=== PATIENT | male | born 1990 | race Caucasian/White ===

== ENCOUNTER 2016-09-10 21:50 | Emergency (ER) | payer BC ==
[2016-09-10 22:06] VITALS: BP 140/73
--- NOTE | 2016-09-10 22:24 | ERNOTE ---
Medical Problem HPI - Narrative Date of Service: 09/10/16 - General Chief Complaint: Flu Symptoms - Immun/Allergies/Home Medications Immunizations: IMMUNIZATION HX Immunizations Up to Date Yes History of Influenza Vaccine No Hx Pneumococcal Vaccination No Allergies/Adverse Reactions: Allergies No Known Allergies Allergy (Verified 09/10/16 22:06) Home Medications: HOME MEDICATIONS NK [No Home Medication] 04/17/16 [Last Taken Unknown] - History of Present History Narrative: Pt arrived with sore throat and cough. In triage pt refused to have a strep swab and got angry and left. Pt not seen by physician Review of Systems - Narrative Narrative: Pt left AMA, NOT SEEN - Narrative Narrative: Pt left AMA, NOT SEEN - Patient's Past Medical History Patient History - Medical: ADHD, GERD Patient History - Cardiac/Respiratory: No pertinent hx Patient History - Cancer: No Hx of Cancer Patient History - Surgical Procedures: No surgical history Patient History - Other: None - Social History Living Situations: home Abuse History: No History of abuse Psych History: No pertinent hx Smoking Status: Never smoker Alcohol Use: none Drug Use: none - Immunizations Immunizations Up to Date: Yes Hx Pneumococcal Vaccination: No History of Influenza Vaccine: No Physical Exam - Physical Exam Narrative: NOT SEEN ED Progress - Vital Signs Vital Signs: Vital Signs 09/10/16 22:01 Temperature 37.4 C Pulse Rate 80 Respiratory 15 Rate Blood Pressure 140/73 O2 Sat by Pulse 98 Oximetry - Progress/Reassessment Chief Complaint: Flu Symptoms Departure - Departure Clinical Impression: Patient left without being seen Disposition: Against medical advice
--- OUTSIDE RECORDS SUMMARY | 2016-09-10 22:34 | XMS REPORT | Continuity of Care Document ---
:1990 Author Organization [facility] ([facility]) Address [place] [address] Phone [phone] Care Team Providers Name Role Phone Damian Willett Charity Primary Care Provider [phone] Source Comments This disclosure is being made pursuant to the Care Everywhere program, applicable federal and state laws, and may not contain all informaitonavailable regarding this patient.[facility] ([facility]) Active Allergies and Adverse Reactions No Known Allergies Current Medications No known medications Active Problems Problem Noted Date Hypersomnia, unspecified 06/08/2009 Syncope 05/14/2009 Social History Tobacco Use Types Packs/Day Years Used Date Never Assessed Last Filed Vital Signs Vital Sign Reading Time Taken Blood Pressure 130/72 05/24/2009 9:28 AM CHEF ASSISTANT Pulse 62 05/24/2009 9:28 AM CHEF ASSISTANT Temperature 35.6 C (96.1 F) 05/24/2009 9:28 AM CHEF ASSISTANT Respiratory Rate 18 05/24/2009 9:28 AM CHEF ASSISTANT Height 1.732 m (5' 8.19") 05/24/2009 9:28 AM CHEF ASSISTANT Weight 83.3 kg (183 lb 10.3 oz) 05/24/2009 9:28 AM CHEF ASSISTANT Body Mass Index 27.77 05/24/2009 9:28 AM CHEF ASSISTANT Oxygen Saturation - - Plan of Care Health Maintenance Due Date Last Done Comments Hepatitis B Vaccine (1 of 3 - Primary Series) 1992 HPV Vaccine (1 of 3 - Male 3 Dose Series) 2003 Tdap Vaccine 2003 Lipid Disorder Screening 2010 MMR Vaccine 2010 Td Vaccine 2010 Varicella Vaccine (1 of 2 - Adult - No Evidence of 2010 Immunity) Influenza Vaccine: Seasonal (#1) 02/04/2016 Results from Last 3 Months Not on file
--- OUTSIDE RECORDS SUMMARY | 2016-09-10 22:34 | XMS REPORT | Continuity of Care Document ---
:1990 Author Organization [facility] [place] [address] Care Team Providers Name Role Phone Provider, None Per Patient Primary Care Provider Unavailable Source Comments This disclosure is being made pursuant to the [employer] program and maynot contain all information available regarding this patient.[facility] Active Allergies and Adverse Reactions No Known Allergies Current Medications Be aware that medications may not be up to date as of this document. Alwaysverify current medications with the patient. No known medications Active Problems Not on file Social History Tobacco Use Types Packs/Day Years Used Date Never Assessed Last Filed Vital Signs Vital Sign Reading Time Taken Blood Pressure 108/78 05/04/2014 1:07 PM CDT Pulse 60 05/04/2014 1:07 PM CDT Temperature 36.5 C (97.7 F) 05/04/2014 1:07 PM CDT Respiratory Rate 16 05/04/2014 1:07 PM CDT Height 1.765 m (5' 9.5") 05/04/2014 1:07 PM CDT Weight 106.777 kg (235 lb 6.4 oz) 05/04/2014 1:07 PM CDT Body Mass Index 34.28 05/04/2014 1:07 PM CDT Oxygen Saturation - - Plan of Care Health Maintenance Due Date Last Done Comments HPV Vaccine (9-26YO) (1 of 3 - Male 3 Dose Series) 2003 Retired-Tetanus Vaccine Adult 2011 Retired-INFLUENZA VACCINE 03/06/2015 Results from Last 3 Months Not on file
== END 2016-09-10 22:22 | disposition left against medical advice (07) ==
LOC: ER 21:50
DX: Z53.21 Procedure and treatment not carried out due to patient leaving prior to being seen by health care provider (principal)

== ENCOUNTER 2017-01-26 20:37 | Emergency (ER) | payer BC, MEDICAID ==
--- OUTSIDE RECORDS SUMMARY | 2017-01-26 20:55 | XMS REPORT | Clinical Summary ---
:1990 Author Organization [facility] [place] [address] Care Team Providers Name Role Phone Unavailable Primary Care Provider Unavailable Source Comments This disclosure is being made pursuant to the [employer] program and maynot contain all information available regarding this patient.[facility] Allergies No Known Allergies Current Medications Be aware that medications may not be up to date as of this document. Alwaysverify current medications with the patient. No known medications Active Problems Not on file Social History Tobacco Use Types Packs/Day Years Used Date Never Assessed Sex Assigned at Date Recorded Not on file Last Filed Vital Signs Vital Sign Reading Time Taken Blood Pressure 108/78 05/04/2014 1:07 PM CDT Pulse 60 05/04/2014 1:07 PM CDT Temperature 36.5 C (97.7 F) 05/04/2014 1:07 PM CDT Respiratory Rate 16 05/04/2014 1:07 PM CDT Oxygen Saturation - - Inhaled Oxygen Concentration - - Weight 106.8 kg (235 lb 6.4 oz) 05/04/2014 1:07 PM CDT Height 176.5 cm (5' 9.5") 05/04/2014 1:07 PM CDT Body Mass Index 34.26 05/04/2014 1:07 PM CDT Plan of Treatment Health Maintenance Due Date Last Done Comments HPV Vaccine (F:9-26YO,M: 9-22) (1 of 3 - Male 3 Dose 2003 Series) Retired-Tetanus Vaccine Adult 2011 Retired-INFLUENZA VACCINE 03/06/2015 Results Not on filefrom Last 3 Months
--- NOTE | 2017-01-26 21:00 | ERNOTE ---
Integumentary HPI - Narrative Date of Service: 01/26/17 - General Presenting Symptoms: abscess Time Seen by Provider: 01/26/17 20:47 Source: patient, family, RN notes reviewed Exam Limitations: no limitations - Immun/Allergies/Home Medications Immunizations: IMMUNIZATION HX Immunizations Up to Date Yes History of Influenza Vaccine No Hx Pneumococcal Vaccination No Allergies/Adverse Reactions: Allergies Allergy/AdvReac Type Severity Reaction Status Date / Time No Known Allergies Allergy Verified 01/26/17 20:44 Home Medications: HOME MEDICATIONS Sulfamethoxazole/Trimethoprim [Bactrim Ds] 1 tab PO BID #20 tab 01/26/17 [Last Taken Unknown] - History of Present Illness Narrative: Francisco is a 26-year-old male who presents to the emergency Department by private vehicle with his for an abscess on his left anterior thigh that she first noticed approximately 3 days ago. He has a history of MRSA. He reports that the abscess has come open and has been draining, and the surrounding redness has somewhat decreased since. He states that it is very painful, but denies fevers, chills, nausea or vomiting. It has been approximately 2 years since he last had an abscess. Location: Reports: lower extremity Quality: Reports: painful Exposure: Reports: other - recently had MRSA abscess Prior Treatment: Denies: recently seen, currently on antibiotics Review of Systems - Review of Systems Constitutional: Present: decreased activity level. Absent: recent illness, fever, chills EYE: Present: no symptoms reported ENT: Present: no symptoms reported Respiratory: Present: no symptoms reported Cardiology: Present: no symptoms reported Gastrointestinal/Abdominal: Absent: nausea, vomiting, eating less, drinking less Genitourinary: Present: no symptoms reported Musculoskeletal: Present: muscle pain. Absent: joint pain, joint swelling Skin: Present: lesions, lumps, change in color. Absent: rash Neurological: Absent: headache, dizziness/light-headedness Endocrine: Present: no symptoms reported Hematologic/Lymphatic: Absent: easy bruising, easy bleeding Psych: Present: no symptoms reported - Patient's Past Medical History Patient History - Medical: ADHD, GERD Patient History - Cardiac/Respiratory: No pertinent hx Patient History - Cancer: No Hx of Cancer Patient History - Surgical Procedures: No surgical history Patient History - Other: None - Social History Living Situations: home Abuse History: No History of abuse Psych History: No pertinent hx Smoking Status: Never smoker Have you smoked in the past 12 months: No Do you dip or chew tobacco: No Alcohol Use: none Drug Use: none - Immunizations Immunizations Up to Date: Yes Hx Pneumococcal Vaccination: No History of Influenza Vaccine: No Physical Exam - Physical Exam General Appearance: Present: wd/wn, alert, no apparent distress, other - Poor hygiene Respiratory: Present: no respiratory distress, no accessory muscle use Cardiovascular/Chest: Present: normal peripheral pulses Extremity Exam: Present: normal range of motion, no edema Neurological Exam: Present: alert, oriented, normal mood/affect Skin Exam: Present: warm/dry, other - Abscess left anterior thigh, open and draining, surrounding skin erythematous, indurated and hot to touch ED Progress - Vital Signs Patient's Vital Signs:: I have reviewed the patient's vital signs. Vital Signs: Vital Signs 01/26/17 01/26/17 20:41 20:46 Temperature 37.3 C Pulse Rate 107 H 98 Respiratory 16 16 Rate Blood Pressure 138/83 O2 Sat by Pulse 99 Oximetry - Progress/Reassessment Chief Complaint: Abscess Progress:: Improved Procedures Left Anterior Thigh Anesthesia: 1% Lidocaine I & D Prep: betadine prep, sterile drapes applied Blade Size: 11 Findings and Actions: purulent drainage moderate, probed/breakup loculation, packed with guaze, cultures obtained Complications: Pt gera procedure well Departure Clinical Impression: Abscess of left thigh - Departure Disposition: Home self-care Condition: Stable Instructions: Abscess, [id number], Community-Associated MRSA Additional Instructions: Remove packing tomorrow evening Apply ointment twice a day for 7 days Change dressing twice a day or more often if needed Chlorhexidine (Hibiclens) soap may be helpful in getting rid of MRSA - use daily when showering for one week and then once a week for maintenance You can also use bleach in your bathwater - 1/2 cup per tub of water Prescriptions: Sulfamethoxazole/Trimethoprim [Bactrim Ds] 1 tab PO BID #20 tab
[2017-01-26] MEDS ORDERED: SULFAMETHOXAZOLE/TRIMETHOPRIM 1 TAB TABLET ONE (21:20)
[2017-01-26] MEDS ORDERED: MUPIROCIN 22 APPL TUBE TP ONE (21:20)
[2017-01-26] MEDS: SULFAMETHOXAZOLE/TRIMETHOPRIM 1 TAB TABLET PO ONE (21:23)
[2017-01-26] MEDS: MUPIROCIN 22 APPL TUBE TP ONE (21:23)
[2017-01-26 21:35] VITALS: BP 146/86
== END 2017-01-26 21:33 | disposition home or self-care (01) ==
LOC: ER 20:37
PROC: 0H9JXZZ Drainage of Left Upper Leg Skin, External Approach (ICD-10-PCS; principal; 2017-01-26)
DX: L02.416 Cutaneous abscess of left lower limb (principal)

== ENCOUNTER 2017-03-19 10:44 | Emergency (ER) | payer MEDICAID ==
[2017-03-19 10:54] VITALS: BP 146/74
[2017-03-19] MEDS ORDERED: IBUPROFEN 600 MG TABLET PO ONE (11:23)
[2017-03-19] MEDS ORDERED: ACETAMINOPHEN 325 MG TABLET PO ONE (11:23)
[2017-03-19] MEDS ORDERED: CLINDAMYCIN HCL 150 MG CAPSULE PO ONE (11:23)
--- NOTE | 2017-03-19 11:32 | ERNOTE ---
Integumentary HPI - Narrative Date of Service: 03/19/17 - General Presenting Symptoms: abscess Time Seen by Provider: 03/19/17 11:13 Source: patient, RN notes reviewed Exam Limitations: no limitations - Immun/Allergies/Home Medications Immunizations: IMMUNIZATION HX Immunizations Up to Date Yes History of Influenza Vaccine No Hx Pneumococcal Vaccination No Allergies/Adverse Reactions: Allergies Allergy/AdvReac Type Severity Reaction Status Date / Time No Known Allergies Allergy Verified 03/19/17 10:54 Home Medications: HOME MEDICATIONS Clindamycin HCl [Cleocin HCl] 300 mg PO QID #40 capsule 03/19/17 [Last Taken Unknown] Ibuprofen [Motrin] 600 mg PO Q6H PRN #40 tab 03/19/17 [Last Taken Unknown] - History of Present Illness Narrative: Francisco is a 26-year-old male who presents to the emergency department for an abscess on his left knee that he first noticed 3 days ago. He is experiencing warmth and erythema surrounding what appears to have been an ingrown hair or possibly a small abrasion. He also has mild edema in the extremity. He denies any drainage from the wound. He has not been taking anything for his symptoms. He does have a history of MRSA, and reports that he is always given Bactrim for this but it does not work. He was sent here from his work because he was having difficulty bending the left leg due to the swelling. Date (Duration): 03/16/17 Location: Reports: lower extremity Quality: Reports: painful Exposure: Reports: no cause identified Associated Symptoms: Reports: edema. Denies: blisters, rash, hives, petechiae, swelling/mass/lumps, fever, headache, malaise Prior Treatment: Denies: recently seen, currently on antibiotics Review of Systems - Review of Systems Constitutional: Absent: fever, chills, malaise EYE: Present: no symptoms reported ENT: Present: no symptoms reported Respiratory: Absent: shortness of breath, cough Cardiology: Absent: chest pain, syncope Gastrointestinal/Abdominal: Absent: nausea, vomiting Genitourinary: Present: no symptoms reported Musculoskeletal: Absent: joint pain, joint swelling Skin: Present: lesions, change in color. Absent: rash Neurological: Absent: headache, dizziness/light-headedness Endocrine: Present: no symptoms reported Hematologic/Lymphatic: Absent: easy bruising, easy bleeding Psych: Present: no symptoms reported - Patient's Past Medical History Patient History - Medical: ADHD, GERD, Other - MRSA Patient History - Cardiac/Respiratory: No pertinent hx Patient History - Cancer: No Hx of Cancer Patient History - Surgical Procedures: No surgical history Patient History - Other: None - Social History Living Situations: home Abuse History: No History of abuse Psych History: No pertinent hx Smoking Status: Never smoker Alcohol Use: none Drug Use: none - Immunizations Immunizations Up to Date: Yes Hx Pneumococcal Vaccination: No History of Influenza Vaccine: No Physical Exam - Physical Exam General Appearance: Present: wd/wn, alert, no apparent distress, other - Dirty appearance Neck: Present: normal inspection, nontender, supple Respiratory: Present: no respiratory distress, normal breath sounds, no accessory muscle use, lungs clear Cardiovascular/Chest: Present: regular rate, rhythm, no murmur Extremity Exam: Present: decreased range of motion - Left knee, extremity edema - Left anterior knee. Absent: joint redness, joint swelling Neurological Exam: Present: alert, oriented, no motor/sensory deficits, other - Depressed appearing, Flat affect. Absent: normal mood/affect Skin Exam: Present: warm/dry, other - Small scab to right superior/anterior knee with surrounding erythema and edema - no drainage or fluctuance, does not involve knee joint ED Progress - Vital Signs Patient's Vital Signs:: I have reviewed the patient's vital signs. Vital Signs: Vital Signs 03/19/17 10:49 Temperature 37.3 C Pulse Rate 102 H Respiratory 16 Rate Blood Pressure 146/74 O2 Sat by Pulse 96 Oximetry - Progress/Reassessment Chief Complaint: Abscess Progress:: Unchanged Departure Clinical Impression: Cellulitis and abscess of left lower extremity - Departure Disposition: Home Follow Up Needed Condition: Stable Instructions: Abscess, [id number], Form - Excuse from Work, School, or Physical Activity Additional Instructions: Use warm moist compresses to the affected area several times a day Elevate your leg as much as possible Take Tylenol and ibuprofen as directed on label for pain Return to the ER if you experience fever, chills, vomiting or if the lesion appears to need to be drained Prescriptions: Clindamycin HCl [Cleocin HCl] 300 mg PO QID #40 capsule Ibuprofen [Motrin] 600 mg PO Q6H PRN #40 tab PRN Reason: Pain
[2017-03-19] MEDS ORDERED: ACETAMINOPHEN 325 MG TABLET ONE (11:34)
[2017-03-19] MEDS ORDERED: CLINDAMYCIN HCL 150 MG CAPSULE ONE (11:34)
[2017-03-19] MEDS ORDERED: IBUPROFEN 600 MG TABLET ONE (11:34)
== END 2017-03-19 11:38 | disposition home or self-care (01) ==
LOC: ER 10:44
DX: L02.416 Cutaneous abscess of left lower limb (principal); L03.116 Cellulitis of left lower limb